=== PATIENT | male | born 1955 | race Caucasian/White ===

== ENCOUNTER → 2021-09-13 | Outpatient (CLI) | payer MEDICARE, OTHER ==
[~2021-09-13] MED LIST: ATOR10TA PO; BISO-3 PO; CYCL10TA9 PO; HYDR25TA4 PO; NAPR220T66 PO; POTA10TA10 PO; TMSL.4C PO
[2021-09-13 11:07] LABS: BASOPHILS # (AUTO) 0.1 10^3/uL (0.0-0.1); BASOPHILS % (AUTO) 1 % (0-10); EOSINOPHILS # (AUTO) 0.3 10^3/uL (0.0-0.3); EOSINOPHILS % (AUTO) 4 % (0-10); HEMATOCRIT 45 % (40-54); HEMOGLOBIN 15.7 g/dL (13.3-17.7); LYMPHOCYTES # (AUTO) 2.5 10^3/uL (1.0-4.0); LYMPHOCYTES % (AUTO) 40 % (12-44); MEAN CORPUSCULAR HEMOGLOBIN 30 pg (25-34); MEAN CORPUSCULAR HGB CONC 35 g/dL (32-36); MEAN CORPUSCULAR VOLUME 86 fL (80-99); MEAN PLATELET VOLUME 9.4 fL (9.0-12.2); MONOCYTES # (AUTO) 0.6 10^3/uL (0.0-1.0); MONOCYTES % (AUTO) 9 % (0-12); NEUTROPHILS # (AUTO) 2.8 10^3/uL (1.8-7.8); NEUTROPHILS % (AUTO) 45 % (42-75); PLATELET COUNT 266 10^3/uL (130-400); WHITE BLOOD COUNT 6.3 10^3/uL (4.3-11.0)
--- NOTE | 2021-09-13 11:18 | Diagnostic Imaging Report ---
INDICATION: CHEST CONGESTION, CHEST PAIN. TECHNIQUE: Two view chest 11:15 AM CORRELATION STUDY: None FINDINGS: The heart size, mediastinal configuration and pulmonary vasculature are within normal limits. Minimal patchy infiltrate likely within the lingula left upper lobe at the lung base. Right lung clear. Mildly advanced degenerative changes through the thoracic spine. IMPRESSION: 1. Suspect small patchy infiltrate left lung base. Dictated by: Dictated on workstation # [id number]
[2021-09-13 11:31] LABS: ALANINE AMINOTRANSFERASE 27 U/L (0-55); ALBUMIN 4.1 GM/DL (3.2-4.5); ALKALINE PHOSPHATASE 71 U/L (40-136); BILIRUBIN,TOTAL 1.1 MG/DL (0.1-1.0); BUN/CREATININE RATIO 11; CALCIUM 9.2 MG/DL (8.5-10.1); CARBON DIOXIDE 24 MMOL/L (21-32); CHLORIDE 104 MMOL/L (98-107); CREATINE KINASE MB 1.6 NG/ML (<6.6); CREATININE SERUM 1.08 MG/DL (0.60-1.30); GFR ESTIMATED 68; GLUCOSE 111 MG/DL (70-105); SODIUM 138 MMOL/L (135-145); TOTAL PROTEIN 7.7 GM/DL (6.4-8.2)
== END ==
LOC: CARD 10:45
PROVIDERS: ATTEND Family Medicine
DX: R07.9 Chest pain, unspecified (principal); R09.89 Other specified symptoms and signs involving the circulatory and respiratory systems; R51.9 Headache, unspecified
CPT/HCPCS: 36415; 71046; 80053; 82553; 84484; 85025; 93005

== ENCOUNTER → 2021-10-09 | Outpatient (CLI) | payer MEDICARE ==
[~2021-10-09] MED LIST changes: +CATHETER FLUSH 10 ML SYR IV PRN; +CYCL10TA25 PO; -CYCL10TA9 PO; +HOLD METFORMIN - RECEIVED CONTRAST 20 ML VIAL IV SCH; +IOHEXOL 350 MG/ML 100 ML (OMNIPAQUE 350) VIAL IV ONE; +NS 100 ML (IVPB) BAG IV ONE
--- NOTE | 2021-10-09 08:42 | Diagnostic Imaging Report ---
PROCEDURE: CT angiography of the chest with contrast. TECHNIQUE: Multiple contiguous axial images were obtained through the chest after uneventful bolus administration of intravenous contrast. 3D reconstructed CTA MIP acquisitions were also performed. Auto Exposure Controls were utilized during the CT exam to meet ALARA standards for radiation dose reduction. INDICATION: Dyspnea, chest tightness. No priors. Pulmonary arterial branches widely patent. No filling defect and no PE. Thoracic aorta patent and nonaneurysmal, and nonacute. No focal pulmonary consolidation. No lung mass. No thoracic adenopathy. There is coronary artery atherosclerotic vascular calcifications. There is no pleural or pericardial effusion. Visualized upper abdomen nonacute. IMPRESSION: Negative for PE or other acute abnormalities. Dictated by: Dictated on workstation # [id number]
== END ==
LOC: RAD 08:45
PROVIDERS: ATTEND Family Medicine
DX: R06.00 Dyspnea, unspecified (principal); R07.89 Other chest pain
CPT/HCPCS: 71275

== ENCOUNTER → 2021-11-01 | Outpatient (CLI) | payer MEDICARE ==
[~2021-11-01] MED LIST changes: -CATHETER FLUSH 10 ML SYR IV PRN; -HOLD METFORMIN - RECEIVED CONTRAST 20 ML VIAL IV SCH; -IOHEXOL 350 MG/ML 100 ML (OMNIPAQUE 350) VIAL IV ONE; -NS 100 ML (IVPB) BAG IV ONE
== END ==
LOC: CARD 09:00
PROVIDERS: ATTEND Family Medicine
DX: R07.89 Other chest pain (principal)
CPT/HCPCS: 93306

== ENCOUNTER → 2021-11-27 | Outpatient (CLI) | payer MEDICARE ==
[2021-11-27 10:42] VITALS: BP 118/78
== END ==
LOC: CARD 10:30
PROVIDERS: ATTEND Family Medicine
DX: R07.9 Chest pain, unspecified (principal)
CPT/HCPCS: 93017

== ENCOUNTER → 2021-12-07 | Outpatient (CLI) | payer MEDICARE ==
--- NOTE | 2021-12-07 08:54 | Diagnostic Imaging Report ---
PROCEDURE: CT sinuses without contrast TECHNIQUE: Multiple contiguous axial images were obtained through the sinuses without the use of intravenous contrast. Coronal and sagittal reformations were then performed. Auto Exposure Controls were utilized during the CT exam to meet ALARA standards for radiation dose reduction. INDICATION: Sinus and facial pressure. No prior studies are available for comparison. The frontal sinuses clear. Ethmoid air cells and sphenoid sinus are clear. Bilateral maxillary sinuses are clear. No mucosal thickening or air-fluid levels are identified. The ostiomeatal complexes are patent bilaterally. The nasal septum is midline. Mastoid air cells are well aerated. IMPRESSION: No evidence of sinusitis. Dictated by: Dictated on workstation # [id number]
== END ==
LOC: RAD 08:15
PROVIDERS: ATTEND Family Medicine
DX: R51.9 Headache, unspecified (principal)
CPT/HCPCS: 70486